=== PATIENT | male | born 1960 | race Two or more races ===

== ENCOUNTER 2023-08-05 09:19 | Emergency (ER) | payer OTHER ==
[~2023-08-05] VITALS: Ht 188 cm; Wt 90.9 kg
[2023-08-05] MEDS ORDERED: ATOR10TA PO (09:22)
[2023-08-05] MEDS ORDERED: METF-1211 PO (09:22)
[2023-08-05] MEDS ORDERED: PANT-31 PO (09:22)
[2023-08-05] MEDS ORDERED: LOSA-381 PO (09:22)
[2023-08-05 09:29] VITALS: TEMP 98.3
[2023-08-05 11:46] LABS: BASOPHILS % (AUTO) 0.2 % (0.0-2.0); HEMATOCRIT 38.6 % (41-53); HEMOGLOBIN 13.5 g/dL (13.5-17.5); LYMPHOCYTES # (AUTO) 1.2 K/uL (1.0-4.8); LYMPHOCYTES % (AUTO) 15.3 % (22.0-44.0); MEAN CORPUSCULAR HEMOGLOBIN 31.5 pg (26.0-34.0); MEAN CORPUSCULAR VOLUME 90 fL (80-100); MONOCYTES # (AUTO) 0.9 K/uL (0.1-1.0); NEUTROPHILS # (AUTO) 5.4 K/uL (1.8-7.7); NEUTROPHILS % (AUTO) 71.5 % (40.0-70.0); PLATELET COUNT (AUTO) 168 K/uL (150-450); RED BLOOD CELL COUNT(AUTO) 4.28 MIL/uL (4.50-5.90); RED CELL DISTRIBUTION WIDTH 13.3 % (11.5-14.5); WHITE BLOOD COUNT (AUTO) 7.6 K/uL (4.5-11.0)
[2023-08-05 11:53] LABS: ANION GAP 7 mmol/L (8-16); CALCIUM, TOTAL 9.3 mg/dL (8.8-10.5); CARBON DIOXIDE 29 mmol/L (22-29); CHLORIDE 101 mmol/L (98-107); CREATININE 0.89 mg/dL (0.60-1.30); GLOMERULAR FILTR. RATE CALC > 60 mL/min (>60); GLUCOSE,RANDOM 138 mg/dL (70-110); POTASSIUM 4.1 mmol/L (3.5-5.1); SODIUM SERUM 137 mmol/L (136-145); UREA NITROGEN, BLOOD 17 mg/dL (7-18)
[2023-08-05 11:58] LABS: PROTHROMBIN TIME 10.7 SEC (9.4-11.6)
[2023-08-05 12:01] LABS: TROPONIN I-HIGH SENSITIVITY 5 ng/L (<76)
[2023-08-05 12:03] LABS: B-TYPE NATRIURETIC PEPTIDE 29 pg/mL (0-100)
[2023-08-05 12:12] LABS: ALANINE AMINOTRANSFERASE 23 U/L (12-78); ALBUMIN 4.1 g/dL (3.4-5.0); ALKALINE PHOSPHATASE 56 U/L (46-116); ASPARTATE AMINOTRANSFERASE 22 U/L (15-37); BILIRUBIN,TOTAL 0.6 mg/dL (0.1-1.0); CREATINE KINASE, TOTAL ONLY 88 U/L (39-308)
[2023-08-05 14:28] LABS: TROPONIN I-HIGH SENSITIVITY 7 ng/L (<76)
[2023-08-05 14:48] VITALS: BP 114/73; PULSE 62; RESP 16
[2023-08-05 15:18] LABS: APPEARANCE,URINE CLEAR (CLEAR); BILIRUBIN,URINE NEGATIVE (NEGATIVE); COLOR,URINE LIGHT YELLOW (YELLOW); GLUCOSE, URINE (UA) NEGATIVE (NEGATIVE); KETONES,URINE NEGATIVE (NEGATIVE); LEUKOCYTE ESTERASE ,URINE NEGATIVE (NEGATIVE); NITRATE,URINE NEGATIVE (NEGATIVE); OCCULT BLOOD,URINE NEGATIVE (NEGATIVE); PROTEIN,URINE NEGATIVE (NEGATIVE); SPECIFIC GRAVITIY, URINE 1.012 (1.003-1.030); UROBILINOGEN,URINE <=1.0 mg/dL (<=1.0)
== END 2023-08-05 15:48 | disposition home or self-care (01) ==
LOC: EMS 09:19
DX: R00.2 Palpitations (principal); E11.9 Type 2 diabetes mellitus without complications; E78.00 Pure hypercholesterolemia, unspecified; I10 Essential (primary) hypertension
CPT/HCPCS: 71045; 80053; 81003; 82550; 83880; 84484; 85025; 85610; 85730; 93005; 99285; 36415-L1; 36415-TC

== ENCOUNTER 2025-05-11 10:02 | Emergency (ER) | payer MEDICAID, OTHER ==
[~2025-05-11] VITALS: Ht 182.9 cm; Wt 100.0 kg
[~2025-05-11 10:02] MED LIST: ATOR10TA PO; LOSA-381 PO; METF-1211 PO; PANT-31 PO
[2025-05-11 11:02] LABS: PLATELET COUNT (AUTO) 179 K/uL (150-450); RED BLOOD CELL COUNT(AUTO) 4.21 MIL/uL (4.50-5.90); RED CELL DISTRIBUTION WIDTH 12.8 % (11.5-14.5); WHITE BLOOD COUNT (AUTO) 5.3 K/uL (4.5-11.0)
[2025-05-11 11:10] LABS: CALCIUM, TOTAL 8.5 mg/dL (8.8-10.5); CREATININE 0.97 mg/dL (0.60-1.30); GLOMERULAR FILTR. RATE CALC > 60 mL/min (>60); GLUCOSE,RANDOM 218 mg/dL (70-110); SODIUM SERUM 132 mmol/L (136-145); UREA NITROGEN, BLOOD 10 mg/dL (7-18)
[2025-05-11 11:32] LABS: ASPARTATE AMINOTRANSFERASE 19.0 U/L (15-37); TOTAL PROTEIN, SERUM 7.3 g/dL (6.4-8.2)
[2025-05-11 12:08] LABS: APPEARANCE,URINE CLEAR (CLEAR); GLUCOSE, URINE (UA) 150-200 mg/dL (NEGATIVE); LEUKOCYTE ESTERASE ,URINE NEGATIVE (NEGATIVE); NITRATE,URINE NEGATIVE (NEGATIVE); OCCULT BLOOD,URINE TRACE (NEGATIVE); SPECIFIC GRAVITIY, URINE 1.009 (1.003-1.030)
[2025-05-11] MEDS: SODIUM CHLORIDE 0.9% 1,000 ML IV ONE (13:19)
[2025-05-11] MEDS ORDERED: POLY17PO62 PO (15:40)
[2025-05-11] MEDS ORDERED: METF-1185 PO (15:41)
[2025-05-11 15:47] VITALS: BP 151/79; PULSE 68; RESP 18; O2SAT 99
[2025-05-14] MEDS ORDERED: PRED-554 PO (13:22)
[2025-05-14] MEDS ORDERED: IBUP-1554 PO (13:22)
[2025-05-14] MEDS ORDERED: HYDR-4062 PO (13:22)
[2025-05-14] MEDS ORDERED: VALA500T42 PO (13:22)
== END 2025-05-11 16:09 | disposition home or self-care (01) ==
LOC: EMS 10:02
DX: K59.00 Constipation, unspecified (principal); R10.31 Right lower quadrant pain; E11.9 Type 2 diabetes mellitus without complications; E78.00 Pure hypercholesterolemia, unspecified; I10 Essential (primary) hypertension; K21.9 Gastro-esophageal reflux disease without esophagitis; Z79.899 Other long term (current) drug therapy
CPT/HCPCS: 99284; 74176; 96360; 96361; 80048; 80076; 81001; 82962; 83690; 85025; 36415; 93005; J7030

== ENCOUNTER → 2025-06-03 | Emergency (ER) | payer OTHER ==
[~2025-06-03] VITALS: Ht 182.9 cm; Wt 99.0 kg
[~2025-06-03] MED LIST changes: +HYDR-4062 PO; +IBUP-1554 PO; +POLY17PO62 PO; +PRED-554 PO; +VALA500T42 PO
[2025-06-03 13:42] VITALS: BP 105/77; PULSE 56; RESP 18; TEMP 97.7; O2SAT 99
== END | disposition left against medical advice (07) ==
LOC: EMS 13:30
DX: R21 Rash and other nonspecific skin eruption (principal); Z53.21 Procedure and treatment not carried out due to patient leaving prior to being seen by health care provider
CPT/HCPCS: 99281; Z7502